=== PATIENT | female | born 1970 | race Caucasian/White ===

== ENCOUNTER 2018-03-17 14:23 | Emergency (ER) | payer BC ==
[~2018-03-17] VITALS: Ht 162.6 cm; Wt 89.1 kg
[~2018-03-17 14:23] MED LIST: ALBUAER2 INH; CYCL5TAB PO; HYOS0.1271; IBUP-1277 PO; LEVO88TA3; LORA-388; OMEP20TA14 PO; POLY335019; RIZA10TA18 PO; TRIA0.1C20; ULT50; WHEAPOW13
[2018-03-17 14:30] VITALS: TEMP 36.5; Ht 162.6 cm; Wt 89.1 kg
[2018-03-17] MEDS ORDERED: SODIUM CHLORIDE 0.9% 1000ML 1,000 ML IV STA (14:46)
[2018-03-17] MEDS ORDERED: FENTANYL CITRATE INJ 50 MCG/1 ML 2 ML VIAL IV STA (14:46)
[2018-03-17] MEDS ORDERED: ONDANSETRON INJ 2 MG/ML 2 ML VIAL IV STA (14:46)
[2018-03-17] MEDS ORDERED: ONDA4TAB46 PO (14:48)
[2018-03-17] MEDS ORDERED: OPTIRAY 320 IV PRN (15:00)
[2018-03-17 15:41] LABS: BASO % 0.4 %; BASO ABS # 0.03 K/uL (0-0.2); EOS % 0.5 %; EOS ABS # 0.04 K/uL (0-0.5); HEMATOCRIT 40.7 % (37-47); HEMOGLOBIN 14.3 g/dL (12.0-16.0); IG# 0.02 K/uL (0.00-0.02); LYMPH % 15.9 %; LYMPH ABS # 1.29 K/uL (1.2-3.4); MEAN CELL VOLUME 86.8 fL (80-100); MEAN CORPUSCULAR HEMOGLOBIN 30.5 pg (25-34); MEAN CORPUSCULAR HGB CONC 35.1 g/dl (32-36); MONO % 4.7 %; MONO ABS # 0.38 K/uL (0.11-0.59); NEUT % 78.3 %; NEUT ABS # 6.33 K/uL (1.4-6.5); PLATELET COUNT 273 K/uL (130-400); RED CELL DISTRIBUTION WIDTH CV 14.2 % (11.5-14.5); RED CELL DISTRIBUTION WIDTH SD 44.2 fL (36.4-46.3); WHITE BLOOD COUNT 8.09 K/uL (4.8-10.8)
[2018-03-17 15:58] LABS: ALBUMIN 3.8 gm/dl (3.4-5.0); CALCIUM 9.1 mg/dl (8.5-10.1); CREATININE 0.86 mg/dl (0.60-1.20); POTASSIUM 3.4 mmol/L (3.5-5.1)
[2018-03-17 16:01] LABS: TOTAL PROTEIN 7.8 gm/dl (6.4-8.2)
[2018-03-17] MEDS ORDERED: DIPH1TAB87 PO (16:26)
[2018-03-17] MEDS ORDERED: LEVO100T7 PO (16:26)
[2018-03-17] MEDS ORDERED: VENL150T33 PO (16:26)
[2018-03-17] MEDS ORDERED: MECL1TAB42 PO (16:26)
[2018-03-17] MEDS ORDERED: SUMA50TA15 PO (16:26)
[2018-03-17] MEDS ORDERED: DICY10CA55 PO (16:26)
[2018-03-17] MEDS ORDERED: CLR10 PO (16:26)
[2018-03-17] MEDS ORDERED: PANT40TA PO (16:26)
[2018-03-17] MEDS ORDERED: TOPI50TA16 PO (16:26)
[2018-03-17] MEDS ORDERED: RANI150T85 PO (16:26)
[2018-03-17] MEDS ORDERED: LACT1CAP6 PO (16:26)
--- NOTE | 2018-03-17 16:51 | DIAGNOSTIC IMAGING REPORT ---
CT SCAN OF THE ABDOMEN AND PELVIS WITHOUT IV CONTRAST CLINICAL HISTORY: Left lower quadrant abdominal pain. COMPARISON STUDY: No priors. TECHNIQUE: CT scan of the abdomen and pelvis is performed from the lung bases to the proximal femora. Images are reviewed in the axial, sagittal, and coronal planes. IV contrast was not administered for this examination as per the referring clinician. Note that the examination was performed in suboptimal fashion without oral and IV contrast. A dose lowering technique was utilized adhering to the principles of ALARA. CT DOSE: 735.20 mGy.cm FINDINGS: Lung bases: The heart is normal in size and without pericardial effusion. The lung bases are clear. Liver: The unenhanced liver is normal in size, contour, and attenuation. There is no intrahepatic biliary ductal dilatation. A subcentimeter hypodensity in the left lobe seen on image #69 likely represents a cyst but is too small for definitive characterization. Gallbladder: Surgically absent noting clips in the gallbladder fossa. Spleen: Normal in size and attenuation. Pancreas: Unremarkable. Adrenal glands: Unremarkable. Kidneys: The unenhanced kidneys are normal in size and without hydronephrosis. There are no renal calculi identified. There is no evidence of contour deforming renal mass lesion. Abdominal vasculature: The abdominal aorta is normal in course and caliber. Bowel: There is mild to moderate sigmoid diverticulosis without CT evidence of acute diverticulitis. No bowel obstruction is seen. The appendix is well-visualized and normal. Peritoneum: There is no intraperitoneal free air or abdominal ascites. There is a small fat-containing umbilical hernia. Lymphadenopathy: None. Pelvic viscera: The bladder is decompressed and grossly unremarkable. The uterus is surgically absent. No adnexal lesion is seen. Skeletal structures: There are postoperative changes from L5 to S1 spinal fusion. No lytic or blastic lesions are seen. IMPRESSION: 1. There are no acute infectious or inflammatory findings in the abdomen or pelvis. 2. Mild to moderate sigmoid diverticulosis without CT evidence of acute diverticulitis. 3. Additional findings as above. Electronically signed by: Dwight Junior M.D. 03/17/2018 4:50 PM Dictated Date/Time: 03/17/2018 4:45 PM
[2018-03-17 17:27] VITALS: BP 133/75; PULSE 59; O2SAT 99
--- NOTE | 2018-03-17 21:38 | EMERGENCY ROOM VISIT NOTE ---
ED Visit Note First contact with patient: 14:31 Chief Complaint: Abdominal pain. History of Present Illness: Ms. Norris is a 47 year-old white female complaining of left lower quadrant abdominal pain. Historically patient reports history of irritable bowel syndrome and diverticulitis and she is status post cholecystectomy, partial hysterectomy, exploratory laparoscopy and lysis of adhesions. Patient reports she has chronic ongoing left lower quadrant abdominal pain for many years. She reports recently over the last couple of months her pain has been increasing in regularity and in intensity. She has resisted calling Dr. Oliveira to seek out a cause for these increasing symptoms. Patient reports approximately 2 hours before arriving in the emergency department she has a quick onset of left lower quadrant pain. Since that time her pain has been constant. She describes her pain initially as a squeezing sensation and then a cramping like sensation. She currently rates her discomfort 8/10. She has minimal radiation of her pain into the lower back. She has not identified any aggravating or relieving factors related to the pain. She has not taken any medication for pain prior to arrival at the hospital. Associated with her pain she reports she has been nauseated and vomiting white foamy material and she has had chills but no fernando fevers. Additionally she reports someone of her first episodes of attempting to vomit she felt a popping sensation on the left side of the throat. Patient denies fevers, chills, sweats, skin eruptions, skin color changes, upper respiratory tract symptoms, shortness of breath, chest pain, diarrhea, constipation, rectal bleeding, black/tarry stools, urinary symptoms, hematuria, vaginal bleeding, vaginal discharge, back/flank pain. Review of Systems: As noted above in history of present illness. All body systems were reviewed and found to be negative as noted above. Past Medical History: As previously noted and asthma. Current Medications: Medications Dose Route/Sig Max Daily Dose Days Date Category Dose Instructions Zantac (Ranitidine HCl) Unknown Strength Tab 1 Tab PO BID 03/17/18 Reported Meclizine Hcl 25 Mg Tab 25 Mg PO TID PRN 03/17/18 Reported Probiotic (Lactobacillus) 1 Cap Cap 1 Cap PO DAILY 03/17/18 Reported Benadryl Allergy (Diphenhydramine Hcl) 25 Mg Tab 25 Mg PO UD PRN 03/17/18 Reported TAKE PER PACKAGE DIRECTIONS Claritin (Loratadine) 10 Mg Tab 10 Mg PO DAILY PRN 03/17/18 Reported Bentyl (Dicyclomine Hcl) 10 Mg Cap 10 Mg PO BID PRN 03/17/18 Reported Imitrex (Sumatriptan Succinate) 50 Mg Tab 50 Mg PO UD PRN 03/17/18 Reported Protonix (Pantoprazole Sodium) 40 Mg Tab 40 Mg PO BID 03/17/18 Reported Venlafaxine Hcl Er (Venlafaxine Hcl) 150 Mg Tab 150 Mg PO DAILY 03/17/18 Reported Topamax (Topiramate) 50 Mg Tab 50 Mg PO HS 03/17/18 Reported Levothyroxine Sodium 100 Mcg Tab 100 Mcg PO DAILY 03/17/18 Reported Zofran (Ondansetron HCl) 4 Mg Tab 4 Mg PO UD PRN 11/02/14 Reported Allergies to Medications: Aspirin, feeding and pseudoephedrine. Social History: Patient feels safe in her home environment; she denies tobacco and alcohol use. Physical Examination: Vital Signs: Date Time Temp Pulse Resp B/P (MAP) Pulse Ox O2 Delivery O2 Flow Rate FiO2 03/17/18 17:27 59 18 133/75 99 Room Air 03/17/18 16:23 79 20 112/74 97 Room Air 03/17/18 16:21 56 03/17/18 14:30 36.5 78 18 156/97 99 Room Air GENERAL: 47-year-old female in mild distress due to pain, nontoxic-appearing, afebrile and hemodynamically stable. NEUROLOGICAL: Awake, alert and oriented to person, place and time. Answering questions appropriately and following commands. Normal gait. Good hand eye coordination. SKIN: Warm, dry and pink. No soft tissue eruptions or trauma noted. HEENT: Atraumatic and normocephalic. PERRL. Sclera white and conjunctiva pink. Oral cavity moist and pink. Pharynx is nonerythematous or edematous. Speech normal. No lymphadenopathy. Trachea midline. No jugular venous distention. BACK: No tenderness over the bony spine. No CVA tenderness. THORAX: Lungs sounds are clear to auscultation and equal bilaterally with symmetrical chest wall. No wheezing, rales or rhonchi. No crepitus, tenderness , subcutaneous air or deformities noted. HEART: Regular rate and rhythm. No gallops, rubs or murmurs are appreciated. ABDOMEN: Obese, soft and nontender. Positive bowel sounds in all quadrants. No guarding, rigidity or organomegaly. EXTREMITIES: Moves all extremities well on command and with purpose. All distal neurovascular statuses are intact and equal bilaterally. ED Course: Patient is assessed as noted above. Laboratory Testing: Test 03/17/18 15:00 03/17/18 15:15 Range/Units Urine Color ORANGE Urine Appearance CLEAR CLEAR Urine pH 5.0 4.5-7.5 Urine Specific [place] 1.009 1.000-1.030 Urine Protein NEG NEG Urine Glucose (UA) NEG NEG Urine Ketones NEG NEG Urine Occult Blood NEG NEG Urine Nitrite NEG NEG Urine Bilirubin NEG NEG Urine Urobilinogen NEG NEG Urine Leukocyte Esterase NEG NEG White Blood Count 8.09 4.8-10.8 K/uL Red Blood Count 4.69 4.2-5.4 M/uL Hemoglobin 14.3 12.0-16.0 g/dL Hematocrit 40.7 37-47 % Mean Corpuscular Volume 86.8 80-100 fL Mean Corpuscular Hemoglobin 30.5 25-34 pg Mean Corpuscular Hemoglobin Concent 35.1 32-36 g/dl Platelet Count 273 130-400 K/uL Mean Platelet Volume 10.0 7.4-10.4 fL Neutrophils (%) (Auto) 78.3 % Lymphocytes (%) (Auto) 15.9 % Monocytes (%) (Auto) 4.7 % Eosinophils (%) (Auto) 0.5 % Basophils (%) (Auto) 0.4 % Neutrophils # (Auto) 6.33 1.4-6.5 K/uL Lymphocytes # (Auto) 1.29 1.2-3.4 K/uL Monocytes # (Auto) 0.38 0.11-0.59 K/uL Eosinophils # (Auto) 0.04 0-0.5 K/uL Basophils # (Auto) 0.03 0-0.2 K/uL RDW Standard Deviation 44.2 36.4-46.3 fL RDW Coefficient of Variation 14.2 11.5-14.5 % Immature Granulocyte % (Auto) 0.2 % Immature Granulocyte # (Auto) 0.02 0.00-0.02 K/uL Sodium Level 140 136-145 mmol/L Potassium Level 3.4 3.5-5.1 mmol/L Chloride Level 108 98-107 mmol/L Carbon Dioxide Level 25 21-32 mmol/L Anion Gap 7.0 3-11 mmol/L Blood Urea Nitrogen 17 7-18 mg/dl Creatinine 0.86 0.60-1.20 mg/dl Est Creatinine Clear Calc Drug Dose 85.5 ml/min Estimated GFR () 91.9 Estimated GFR (Non- 79.3 BUN/Creatinine Ratio 19.5 10-20 Random Glucose 82 70-99 mg/dl Calcium Level 9.1 8.5-10.1 mg/dl Total Bilirubin 0.4 0.2-1 mg/dl Direct Bilirubin 0.1 0-0.2 mg/dl Aspartate Amino Transf (AST/SGOT) 15 15-37 U/L Alanine Aminotransferase (ALT/SGPT) 18 12-78 U/L Alkaline Phosphatase 72 45-117 U/L Total Protein 7.8 6.4-8.2 gm/dl Albumin 3.8 3.4-5.0 gm/dl Lipase 83 73-393 U/L Noncontrast Abdominal/Pelvic CT: Was reviewed by myself and read by the radiologist and shows no acute infectious or inflammatory changes in the abdomen /pelvis, mild to moderate sigmoid diverticulosis without evidence of diverticulitis and postoperative changes at the L5-S1 area. Patient was hydrated with normal saline and she received 100 mcg of fentanyl IV for pain. Patient was reassessed multiple times during her stay in the emergency department. Patient's case was reviewed with Dr. Drake; we agreed on diagnostic approach, treatment, disposition and plan. Patient was educated about today's findings and instructed on her treatment plan ; she verbalized understanding and agreement with this plan. Clinical Impression: Left lower quadrant abdominal pain. Decision-Making: Initially my differential diagnosis I considered diverticulitis , kidney stone, irritable bowel syndrome, constipation, perforated viscus, ovarian cyst rupture, ovarian torsion and other causes. Disposition: Patient discharged home in stable condition accompanied by her ; prior to departure she was reassessed and subjectively reported she was feeling better and rated her discomfort 4/10. Plan: Patient was encouraged to continue her current medications as prescribed. Patient was encouraged to use ibuprofen or acetaminophen every 6 hours as needed for pain or alternate every 3 hours for persistent pain. Patient was encouraged to stay well-hydrated with increased clear fluids. Patient was encouraged to call Dr. Stack for follow-up care and treatment. Patient was encouraged return the ED for worsening/uncontrolled pain, uncontrolled vomiting, bloody vomitus, bloody stools, fevers or any new/ concerning symptoms.
== END 2018-03-17 17:41 | disposition home or self-care (01) ==
LOC: C.EDB 14:25
DX: R10.32 Left lower quadrant pain (principal); G89.29 Other chronic pain; K58.9 Irritable bowel syndrome, unspecified; K57.90 Diverticulosis of intestine, part unspecified, without perforation or abscess without bleeding; J45.909 Unspecified asthma, uncomplicated; Z90.49 Acquired absence of other specified parts of digestive tract; Z90.711 Acquired absence of uterus with remaining cervical stump; Z79.899 Other long term (current) drug therapy; Z88.6 Allergy status to analgesic agent; Z88.8 Allergy status to other drugs, medicaments and biological substances